=== PATIENT | female | born 1985 | race Caucasian/White ===

== ENCOUNTER 2016-10-18 06:00 | Inpatient (IN) ==
[2016-10-18] MEDS ORDERED: LIDOCAINE 1% (10mg/ml) 2mL INJ PF SDV ID PRN (06:06)
[2016-10-18] MEDS ORDERED: ACETAMINOPHEN 500 MG TABLET PO PRN ×2 (06:06→12:10)
[2016-10-18] MEDS ORDERED: OXYTOCIN DRIP 30 UNIT/500 ML ML IV PRN (06:06)
[2016-10-18] MEDS ORDERED: MAG-AL + SIM ORAL LIQUID 30ml PO PRN ×2 (06:06→12:10)
[2016-10-18] MEDS ORDERED: CARBOPROST 250 MCG/ML INJECTION IM PRN (06:06)
[2016-10-18] MEDS ORDERED: CALCIUM CARBONATE Chewable 500mg TABLET PO PRN ×2 (06:06→12:10)
[2016-10-18] MEDS ORDERED: LR 1,000 ML IV PRN (06:06)
[2016-10-18] MEDS ORDERED: D5LR 1,000 ML IV PRN (06:06)
[2016-10-18] MEDS ORDERED: METHYLERGONOVINE 0.2 MG/ML INJECTION IM PRN (06:06)
[2016-10-18] MEDS ORDERED: AMPICILLIN 1 GM in NS 100 ML IV SCH ×2 (06:15→10:00)
[2016-10-18] MEDS ORDERED: AMPICILLIN 2 GM in NS 100 ML IV SCH (06:15)
[2016-10-18 08:46] VITALS: BMI 28.7
[2016-10-18] MEDS ORDERED: DiphenhydrAMINE 25 MG CAPSULE PO PRN (12:10)
[2016-10-18] MEDS ORDERED: HYDROCORTISONE 2.5% CREAM 30gm RECTALLY PRN (12:10)
[2016-10-18] MEDS ORDERED: OXYTOCIN DRIP 30 UNIT/500 ML ML IV SCH (12:10)
[2016-10-18] MEDS ORDERED: SALINE FLUSH 10ml SYRINGE IV PRN (12:10)
[2016-10-18] MEDS: IBUPROFEN 800 MG TABLET PO SCH ×2 (12:15→20:55)
--- NOTE | 2016-10-18 14:45 | Labor and Delivery Note ---
DATE 10/18/2016 DIAGNOSES 1. 30-year-old white female G4, P3 at 40.0 weeks gestational age. 2. Pitocin induction for history of precipitous labor. 3. GBS prophylaxis. 4. AROM. 5. Spontaneous vaginal delivery. 6. Nuchal cord x2 - tight. 7. Female infant, Apgars, 3080 grams (ASAD). 8. First-degree perineal laceration - repaired under local. This is a patient of Dr. Orellana who she set up for an induction today. Initially her cervix was 4 cm dilated at the beginning of the induction. Pitocin reached a maximum of [address] Orellana was in surgery and I was the on-call physician so I was covering. The patient progressed to 8 cm and was having an urge to push. I came and checked her and she was still 8 cm so I turned the Pitocin off. I broke her water and the infant was in the OP presentation. Since she wasn't completely dilated we didn' t want to push at this point despite her urge, so we put the bed together and put her on a peanut ball and rolled her sclg-xx-objl and in 10-15 minutes she had a strong urge, so I rechecked her and she was OA and +1 to +2 station, so we began pushing. With a short amount of pushing, a spontaneous vaginal delivery from the OA position. sucked back in after delivery of the head consistent with a turtle sign. I bulb suctioned the and then noted a tight nuchal cord x2 so they were doubly clamped and cut, unwrapped and then the was delivered and taken directly to the isolette. The placenta delivered spontaneously and was intact. There was a small first degree laceration that was anesthetized with 1% lidocaine and then repaired with 3-0 chromic. EBL was 250. Placenta will be held. Dr. Luu came to evaluate the baby and [facility] went to [facility]. He asked for cord blood gases so arterial and venous cord blood gases were obtained. [facility]ENTERJoaquina
[2016-10-19] MEDS: IBUPROFEN 800 MG TABLET PO SCH ×2 (05:07→15:45)
--- NOTE | 2016-10-19 08:24 | OB/GYN Progress Note ---
OB-PP Progress Note - General PPD1 Maternal Group B Strep: Positive - Subjective Date: 10/19/16 Lochia: Minimal Pain: contolled Voiding: voiding Nausea or Vomiting Present: No - Objective Vital Signs: Last Vital Signs Temp 97.7 F 10/19/16 04:00 Pulse 72 10/19/16 04:00 Resp 16 10/19/16 04:00 BP 115/71 10/19/16 04:00 Pulse Ox 98 10/19/16 04:00 Urine Output: good General: alert and oriented Abdomen: fundus firm, non-tender Extremities: non-tender Edema: none Laboratory: Laboratory Results - last 24 hr 10/18/16 10/18/16 11:50 11:50 Cord ABG pH 7.400 Cord ABG pCO2 42 Cord ABG pO2 20 Cord ABG HCO3 26 Cord ABG Total CO2 27.3 Cord ABG Base Excess 1.0 Cord ABG O2 Sat 32.0 Cord VBG pH 7.422 Cord VBG pCO2 30.6 Cord VBG pO2 34 Cord VBG HCO3 20 Cord VBG Total CO2 21 Cord VBG Base Excess -3.0 Cord VBG O2 Sat 67.0 - Assessment Assessment: SPCAROLE - Plan Plan: routine care Expected date of discharge: 10/20/16
[2016-10-19] MEDS: DOCUSATE CALCIUM 240 MG CAPSULE PO SCH (09:36)
[2016-10-19] MEDS: PRENATAL VITAMIN TABLET PO SCH (15:46)
[2016-10-20] MEDS: IBUPROFEN 800 MG TABLET PO SCH (00:30)
[2016-10-20 04:48] VITALS: RESP 16; TEMP 97.8
--- NOTE | 2016-10-20 08:02 | OB/GYN Progress Note ---
OB-Progress Note Free Text - Date Date: 10/20/16 - Progress Note Progress Note: vss af baby in room now dc instructions reviewed q&a-krb
--- NOTE | 2016-10-20 08:07 | Discharge Instructions ---
Discharge Plan - Med Rec/Dispo Referrals/Follow Up: Nasreen Orellana MD [Physician] - 5-6 Weeks Darlyn Instructions: Vaginal Delivery Prescriptions: Continue uustwiw-ekmnklytq-farv tablet 3 tab PO DAILY tab vitamin,calcium,tujyiljb-omiv-ekzod acid tablet 1 tab PO DAILY tab No Action L.acidophil-L.casei-B.bifid-B.longum-FOS 2 million cell-50 mg capsule 2 tab PO DAILY cap - Disposition 01 Discharged Home, Self-Care
[2016-10-20] MEDS: DOCUSATE CALCIUM 240 MG CAPSULE PO SCH (09:57)
[2016-10-20] MEDS: PRENATAL VITAMIN TABLET PO SCH (09:57)
[2016-10-20 11:35] VITALS: BP 124/80; PULSE 71; O2SAT 100
== END 2016-10-20 13:00 | disposition home or self-care (01) | DRG 775 ==
LOC: MC 06:03
PROVIDERS: ADMIT Obstetrics & Gynecology; ATTEND Obstetrics & Gynecology